=== PATIENT | female | born 1965 | race American Indian/Alaskan Native ===

== ENCOUNTER 2019-05-21 17:59 | Emergency (ER) | payer OTHER ==
[2019-05-21] MEDS ORDERED: TORADOL IV ONE (18:50)
[2019-05-21] MEDS ORDERED: DILAUDID IV ONE (18:50)
[2019-05-21] MEDS ORDERED: ZOFRAN IV ONE ×2 (18:53→20:21)
--- NOTE | 2019-05-21 18:54 | Emergency Department Report ---
ED Chest Pain HPI - General Chief Complaint: Chest Pain Stated Complaint: CHEST PAIN Time Seen by Provider: 05/21/19 18:20 Source: patient, EMS Mode of arrival: Stretcher Limitations: No Limitations - History of Present Illness Initial Comments: 53-year-old female presents to the hospital via EMS with complaints of chest pain started at 11 AM and worsened about 3 or 4 PM. Pain is in the upper chest wall and described as sharp in nature. Pain is intermittent and worse with certain positions and palpation. Mild shortness of breath reported earlier. She denies nausea, vomiting, diaphoresis, calf tenderness, leg edema, history of PE/DVT. She did travel back up forth via car to [place] for her daughter's 2 weeks ago which was a [address] Patient denies personal history of smoking, hypertension, diabetes, or elevated cholesterol. Her mom of CAD/IN at age 38. 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 Severity scale (0 -10): 7 - Related Data Previous Rx's Medication Instructions Recorded Last Taken Type Cyclobenzaprine [Flexeril] 10 mg PO TID PRN #30 tablet 12/18/15 Unknown Rx Ibuprofen [Motrin 600 MG tab] 600 mg PO Q8H PRN #40 tablet 05/21/19 Unknown Rx traMADol [Ultram 50 MG tab] 50 mg PO Q6HR PRN #20 tablet 05/21/19 Unknown Rx Allergies Allergy/AdvReac Type Severity Reaction Status Date / Time No Known Allergies Allergy Unverified 12/18/15 19:25 Heart Score - HEART Score History: Slightly suspicious EKG: Normal Age: 45-65 Risk factors: 1-2 risk factors Troponin: < normal limit HEART Score: 2 ED Review of Systems ROS: Stated complaint: CHEST PAIN Other details as noted in HPI Comment: All other systems reviewed and negative ED Past Medical Hx - Past Medical History Previous Medical History?: No - Surgical History Past Surgical History?: No - Social History Smoking Status: Never Smoker Substance Use Type: None - Medications Home Medications: Home Medications Medication Instructions Recorded Confirmed Last Taken Type Cyclobenzaprine [Flexeril] 10 mg PO TID PRN #30 tablet 12/18/15 Unknown Rx Ibuprofen [Motrin 600 MG tab] 600 mg PO Q8H PRN #40 tablet 05/21/19 Unknown Rx traMADol [Ultram 50 MG tab] 50 mg PO Q6HR PRN #20 tablet 05/21/19 Unknown Rx ED Physical Exam - General Limitations: No Limitations - Other Other exam information: General: No limitations, patient is alert in no acute distress Head exam: Atraumatic, normocephalic Eyes exam: Normal appearance, pupils equal reactive to light, extraocular movements intact ENT: Moist mucous membrane, normal oropharynx Neck exam: Normal inspection, full range of motion, no meningismus nontender Respiratory exam: Clear to auscultation bilateral, no wheezes, rales, crackles Cardiovascular: Normal rate and rhythm, reproducible sternal chest wall tenderness in the upper chest images right to the sternum. Abdomen: Soft, nondistended, and nontender, with normal bowel sounds, no rebound, or guarding Extremity: Full range of motion normal inspection no deformity, no calf tenderness or edema Back: Normal Inspection, full range of motion, no tenderness Neurologic: Alert, oriented x3, cranial nerves intact, no motor or sensory deficit Psychiatric: normal affect, normal mood Skin: Warm, dry, intact ED Course Vital Signs 05/21/19 05/21/19 05/21/19 18:22 18:35 18:42 Temperature 98.0 F 98.0 F Pulse Rate 63 60 60 Respiratory 13 13 13 Rate Blood Pressure 139/79 Blood Pressure 139/79 [Left] O2 Sat by Pulse 100 100 Oximetry 05/21/19 05/21/19 05/21/19 19:04 20:00 21:00 Temperature Pulse Rate 60 58 L 58 L Respiratory 18 16 18 Rate Blood Pressure 135/76 122/72 129/75 Blood Pressure [Left] O2 Sat by Pulse 100 97 100 Oximetry - Reevaluation(s) Reevaluation #1: 05/21/19 23:26 Patient did develop nausea and vomiting with shortness of breath after receiving Dilaudid 0.5 mg and Zofran. Patient then received additional Zofran, Benadryl, and Solu-Medrol with improvement. Patient reports that pain has decreased due to reproducible to palpation and one specific area of her upper sternum. ED wo rkup unremarkable for pulmonary embolism or IN. Patient will be discharged home with chest wall pain KENTON score - Kenton Score Age > 65: (0) No Aspirin use within the Past 7 Days: (0) No 3 or more CAD Risk Factors: (0) No 2 or more Angina events in past 24 hrs: (0) No Known CAD with more than 50% Stenosis: (0) No Elevated Cardiac Markers: (0) No ST Deviation Greater than 0.5mm: (0) No KENTON Score: 0 ED Medical Decision Making - Lab Data Result diagrams: 05/21/19 19:07 05/21/19 19:07 Lab Results 05/21/19 05/21/19 05/21/19 Range/Units 19:07 19:07 19:07 WBC 4.7 (4.5-11.0) K/mm3 RBC 4.36 (3.65-5.03) M/mm3 Hgb 12.2 (10.1-14.3) gm/dl Hct 36.9 (30.3-42.9) % MCV 85 (79-97) fl MCH 28 (28-32) pg MCHC 33 (30-34) % RDW 15.2 (13.2-15.2) % Plt Count 166 (140-440) K/mm3 Lymph % (Auto) 42.6 H (13.4-35.0) % [place] % (Auto) 5.8 (0.0-7.3) % Eos % (Auto) 2.2 (0.0-4.3) % Baso % (Auto) 0.9 (0.0-1.8) % Lymph # 2.0 (1.2-5.4) K/mm3 [place] # 0.3 (0.0-0.8) K/mm3 Eos # 0.1 (0.0-0.4) K/mm3 Baso # 0.0 (0.0-0.1) K/mm3 Seg Neutrophils % 48.5 (40.0-70.0) % Seg Neutrophils # 2.3 (1.8-7.7) K/mm3 PT 13.0 (12.2-14.9) Sec. INR 1.01 (0.87-1.13) D-Dimer 649.48 H (0-234) ng/mlDDU Sodium 139 (137-145) mmol/L Potassium 4.5 (3.6-5.0) mmol/L Chloride 105.5 (98-107) mmol/L Carbon Dioxide 25 (22-30) mmol/L Anion Gap 13 mmol/L BUN 8 (7-17) mg/dL Creatinine 0.6 L (0.7-1.2) mg/dL Estimated GFR > 60 ml/min BUN/Creatinine Ratio 13 % Glucose 101 H (65-100) mg/dL Calcium 9.7 (8.4-10.2) mg/dL Troponin T < 0.010 (0.00-0.029) ng/mL 05/21/19 Range/Units 20:59 WBC (4.5-11.0) K/mm3 RBC (3.65-5.03) M/mm3 Hgb (10.1-14.3) gm/dl Hct (30.3-42.9) % MCV (79-97) fl MCH (28-32) pg MCHC (30-34) % RDW (13.2-15.2) % Plt Count (140-440) K/mm3 Lymph % (Auto) (13.4-35.0) % [place] % (Auto) (0.0-7.3) % Eos % (Auto) (0.0-4.3) % Baso % (Auto) (0.0-1.8) % Lymph # (1.2-5.4) K/mm3 [place] # (0.0-0.8) K/mm3 Eos # (0.0-0.4) K/mm3 Baso # (0.0-0.1) K/mm3 Seg Neutrophils % (40.0-70.0) % Seg Neutrophils # (1.8-7.7) K/mm3 PT (12.2-14.9) Sec. INR (0.87-1.13) D-Dimer (0-234) ng/mlDDU Sodium (137-145) mmol/L Potassium (3.6-5.0) mmol/L Chloride (98-107) mmol/L Carbon Dioxide (22-30) mmol/L Anion Gap mmol/L BUN (7-17) mg/dL Creatinine (0.7-1.2) mg/dL Estimated GFR ml/min BUN/Creatinine Ratio % Glucose (65-100) mg/dL Calcium (8.4-10.2) mg/dL Troponin T < 0.010 (0.00-0.029) ng/mL - EKG Data -: EKG Interpreted by Me (60) EKG shows normal: sinus rhythm, axis (qrs 53), QRS complexes (qrsd 85), ST-T waves (no stemi/t inv) Rate: normal - EKG Data When compared to previous EKG there are: previous EKG unavailable 05/21/19 23:26 repeat ekg at 23:21 unchanged - Radiology Data Radiology results: report reviewed CTA of the chest with 3D Reconstruction Indication: ,cp, elevated ddimer Technique: TECHNIQUE: Axial CT images were obtained through the chest after injection of [ ] IV contrast. 3 plane MIP reconstructions were produced. All CT scans at this location are performed using CT dose reduction for ALARA by means of automated exposure control. COMPARISON: None Automatic exposure control was utilized in an attempt to reduce radiation dose. Findings: Pulmonary arteries: The main pulmonary artery and right and left pulmonary artery branches fill satisfactorily with contrast. No pulmonary embolus is seen. Lungs: The lungs are clear. Mediastinum: Heart size is normal. No adenopathy is seen. Aorta: Normal in diameter. No dissection seen within limits of this exam. Impression: No pulmonary embolus is seen CHEST 2 VIEWS INDICATION / CLINICAL INFORMATION: Chest Pain. COMPARISON: None available. FINDINGS: SUPPORT DEVICES: None. HEART / MEDIASTINUM: No significant abnormality. LUNGS / PLEURA: No significant pulmonary or pleural abnormality. .No pneumothorax. ADDITIONAL FINDINGS: No significant additional findings. IMPRESSION: 1. No acute findings. - Medical Decision Making Patient has a low risk heart score and a normal EKG with cardiac enzymes negative 2 with unchanged EKG 2. Chest pain remains reproducible into the anterior chest wall. Patient with positive d-dimer with a negative CT angio chest. No clinical signs of DVT on exam. Improved with ED treatment and will be discharged on meds for symptomatic treatment and encouraged outpatient follow-up - Differential Diagnosis chest wall strain pain, costochondritis, pulmonary embolism, IN Critical Care Time: No Critical care attestation.: If time is entered above; I have spent that time in minutes in the direct care of this critically ill patient, excluding procedure time. ED Disposition Clinical Impression: Chest wall pain Disposition: DC-01 TO HOME OR SELFCARE Is pt being admited?: No Does the pt Need Aspirin: No Condition: Stable Instructions: Chest Pain (ED) Additional Instructions: Take the medication as prescribed. Follow up with your doctor or the clinic/doctor provided. Return if symptoms worsen as indicated by your discharge instructions Prescriptions: Ibuprofen [Motrin 600 MG tab] 600 mg PO Q8H PRN #40 tablet PRN Reason: Pain traMADol [Ultram 50 MG tab] 50 mg PO Q6HR PRN #20 tablet PRN Reason: Pain [facility] [Primary Care Provider] - 3-5 Days ASHLEE MCNAIR DO [Staff Physician] - 3-5 Days Time of Disposition: 23:33
--- NOTE | 2019-05-21 19:13 | XRay Report ---
CHEST 2 VIEWS INDICATION / CLINICAL INFORMATION: Chest Pain. COMPARISON: None available. FINDINGS: SUPPORT DEVICES: None. HEART / MEDIASTINUM: No significant abnormality. LUNGS / PLEURA: No significant pulmonary or pleural abnormality. .No pneumothorax. ADDITIONAL FINDINGS: No significant additional findings. IMPRESSION: 1. No acute findings. Signer Name: Juan Traylor MD Signed: 05/21/2019 7:09 PM Workstation Name: [id number]
[2019-05-21 19:31] LABS: INR 1.01 (0.87-1.13)
[2019-05-21 19:41] LABS: BUN/Creatinine Ratio 13; Blood Urea Nitrogen 8 mg/dL (7-17); Calcium 9.7 mg/dL (8.4-10.2); Eosinophils # (Auto) 0.1 K/mm3 (0.0-0.4); Eosinophils % (Auto) 2.2 % (0.0-4.3); Hematocrit 36.9 % (30.3-42.9); Hemoglobin 12.2 gm/dl (10.1-14.3); Hemolysis Index 7; Lymphocytes % (Auto) 42.6 % (13.4-35.0); Mean Corpuscular HGB Conc 33 % (30-34); Mean Corpuscular Volume 85 fl (79-97); Monocytes # (Auto) 0.3 K/mm3 (0.0-0.8); Monocytes % (Auto) 5.8 % (0.0-7.3); Platelet Count 166 K/mm3 (140-440); Red Blood Count 4.36 M/mm3 (3.65-5.03); Red Cell Distribution Width 15.2 % (13.2-15.2)
[2019-05-21 19:52] LABS: Basophils % (Auto) 0.9 % (0.0-1.8)
[2019-05-21] MEDS ORDERED: SOLU-Medrol IV ONE (20:21)
[2019-05-21] MEDS ORDERED: BENADRYL IV ONE (20:21)
--- NOTE | 2019-05-21 22:32 | Cat Scan Report ---
CTA of the chest with 3D Reconstruction Indication: ,cp, elevated ddimer Technique: TECHNIQUE: Axial CT images were obtained through the chest after injection of [ ] IV contrast. 3 michael ne MIP reconstructions were produced. All CT scans at this location are performed using CT dose reduc tion for ALARA by means of automated exposure control. COMPARISON: None Automatic exposure control was utilized in an attempt to reduce radiation dose. Findings: Pulmonary arteries: The main pulmonary artery and right and left pulmonary artery branches fill satis factorily with contrast. No pulmonary embolus is seen. Lungs: The lungs are clear. Mediastinum: Heart size is normal. No adenopathy is seen. Aorta: Normal in diameter. No dissection seen within limits of this exam. Impression: No pulmonary embolus is seen Signer Name: Juan Traylor MD Signed: 05/21/2019 10:28 PM Workstation Name: [id number]
[2019-05-21 23:29] VITALS: BP 101/57
== END 2019-05-22 | disposition home or self-care (01) ==
LOC: ED 17:59
DX: R07.89 Other chest pain (principal); R06.02 Shortness of breath
CPT/HCPCS: 36415; 71046; 71275; 80048; 84484; 85025; 85379; 85610; 93005; 93010; 96374; 96375; 96376; 99285; J1170; J1885; J2405; Q9967